=== PATIENT | male | born 1995 | race Caucasian/White ===

== ENCOUNTER 2016-09-08 06:33 | Emergency (ER) | payer MEDICAID ==
[~2016-09-08] VITALS: Ht 172.7 cm; Wt 74.0 kg
[~2016-09-08 06:33] MED LIST: IBUP800T23 PO
[2016-09-08 06:35] VITALS: BP 112/57; PULSE 83; RESP 18; TEMP 98.6; O2SAT 96
--- NOTE | 2016-09-08 07:25 | PD ---
HPI Chief Complaint: Back/ Neck Pain or Injury Time Seen by Provider: 07:21 Travel History International Travel<30 days: No Contact w/Intl Traveler<30days: No Traveled to known affect area: No History of Present Illness HPI 21-year-old male presents to emergency Department with sudden onset left lower back pain. Patient has no history of back pain in the past. Patient is here as a Worker's Comp. as this happened in the far as his workplace. He states he bent over and had sudden onset pain. Pain is rated as a 9 out of 10. It is worse with ambulation. He has no weakness. This is a Worker's Comp. complaint, and the patient is required to have any specific drug test according to his Worker's Comp. paperwork. His been worked states that he should go to the urgent care in [place]. The patient has no known drug allergies. [facility] Past Medical History Medical History: Denies Significant Hx Anxiety: Yes Depression: Yes Cardiovascular Problems: No Diminished Hearing: No Gastrointestinal Disorders: No Genitourinary: No Musculoskeletal: No Neurologic: No Psychiatric: Yes (ANOREXIA/BULEMIA) Respiratory: No Immunizations Current: Yes Tetanus Vaccination: < 5 Years Influenza Vaccination: No ?: Not Past Surgical History Surgical History: No Previous Surgery Other Surgery: No Social History Alcohol Use: No Tobacco Use: Yes Substance Use: No Allergies-Medications (Allergen,Severity, Reaction): Coded Allergies: No Known Allergies (Unverified , 09/08/16) Reported Meds & Prescriptions Reported Meds & Active Scripts Active Review of Systems Except as stated in HPI: all other systems reviewed are Neg General / Constitutional: No: Fever Eyes: No: Visual changes HENT: No: Headaches Cardiovascular: No: Chest Pain or Discomfort Respiratory: No: Shortness of Breath Gastrointestinal: No: Abdominal Pain Genitourinary: No: Dysuria Musculoskeletal: Positive: Arthralgias, Limited ROM, Pain Skin: No Rash Neurologic: No: Weakness Psychiatric: No: Depression Endocrine: No: Polydipsia Hematologic/Lymphatic: No: Easy Bruising Physical Exam Narrative GENERAL: Patient appears in mild distress. SKIN: Warm and dry. Normal color. Normal turgor. No rash. HEAD: Atraumatic. Normocephalic. EYES: Pupils equal and round. No scleral icterus. No injection or drainage. ENT: No nasal bleeding or discharge. Mucous membranes pink and moist. NECK: Trachea midline. No JVD. CARDIOVASCULAR: Regular rate and rhythm. RESPIRATORY: No accessory muscle use. Clear to auscultation. Breath sounds equal bilaterally. MUSCULOSKELETAL: Extremities without clubbing, cyanosis, or edema. No obvious deformities. Patient has straight leg raise pain on the left at 30. He has tenderness with palpation along the left lower lumbar spine into the sciatic notch. He has no significant weakness. NEUROLOGICAL: Awake and alert. No obvious cranial nerve deficits. Motor grossly within normal limits. Five out of 5 muscle strength in the arms and legs. Normal speech. PSYCHIATRIC: Appropriate mood and affect; insight and judgment normal. Data Data Last Documented VS Vital Signs Date Time Temp Pulse Resp B/P Pulse Ox O2 Delivery O2 Flow Rate FiO2 09/08/16 06:35 98.6 83 18 112/57 96 Room Air MDM Medical Decision Making Medical Screen Exam Complete: Yes Emergency Medical Condition: No Differential Diagnosis Lumbar strain. Sciatica. Lumbago. Narrative Course A medical screening exam was performed: At the time of evaluation the presenting medical condition was determined not to be of an emergent nature. The patient was given the option of receiving additional care, but declined. Patient was given options for additional community resources from which to obtain care. The Patient Has Been advised to seek medical attention for their presenting complaint. The patient has been advised to return to the ER at any time if an emergent condition develops. Condition: Stable [place]ian [place] Sep 08, 2016 07:25
== END 2016-09-08 07:25 | disposition left against medical advice (07) ==
LOC: NEPK 06:33
DX: M54.5 Low back pain (principal); Z72.0 Tobacco use
CPT/HCPCS: 99281